=== PATIENT | male | born 1995 | race Hispanic/Latino ===

== ENCOUNTER 2020-02-20 14:24 | Emergency (ER) | payer BC, SELFPAY ==
[2020-02-20 14:40] VITALS: BP 134/76; PULSE 69; RESP 16; TEMP 36.9; O2SAT 99
--- NOTE | 2020-02-20 14:59 | ED.FEVER ---
HPI - Fever General Chief Complaint: Fever Stated Complaint: fever Time Seen by Provider: 02/20/20 15:00 Source: patient and RN notes reviewed Mode of arrival: ambulatory Limitations: no limitations History of Present Illness HPI Narrative: This is a 24 years old male presents to the office for an evaluation of fever when he woke up this morning. He took Tylenol which has helped. Denies any other associated symptoms include congestion, cough, shortness of breath, diarrhea or vomiting. He called off work and his boss told him to come here to get checked. He works at [employer]. Related Data Home Medications Medication Instructions Recorded Confirmed No Home Medications 02/20/20 02/20/20 Allergies Allergy/AdvReac Type Severity Reaction Status Date / Time No Known Allergies Allergy Verified 02/20/20 14:43 Review of Systems Review of Systems: Narrative: CONSTITUTIONAL: Reports fever of 104F this morning. ENT: Denies congestion, sore throat, otalgia. CARDIOVASCULAR: Denies chest pain RESPIRATORY: Denies dyspnea, wheezing, cough GASTROINTESTINAL: Denies abdominal pain, nausea, vomiting SKIN: Denies rash MUSCULOSKELETAL: Denies acute back pain NEUROLOGIC: Denies lightheaded PMFSH Social History Social History Gender identity (if verbalized by the patient): Male Comments At time of signature, I agree with nursing past medical, surgical, social and family history. There is no relevant family history pertinent to the presenting complaint. Exam Narrative: Exam Narrative: GENERAL: This is a well-nourished, well-developed patient, in no apparent distress. CARDIOVASCULAR: Regular rate and rhythm without murmurs, gallops, or rubs. RESPIRATORY: Clear to auscultation. Breath sounds equal bilaterally. No wheezes, rales, or rhonchi. GASTROINTESTINAL: Abdomen soft, non-tender, nondistended. Bowel sounds are active. No hepato-splenomegaly, or palpable masses. No guarding. SKIN: warm, intact with no suspicious lesions or rash, good texture and turgor. NEURO: awake, alert, and oriented to person, place and time. There were no obvious focal neurologic abnormalities. Steady gait [place] Coma Scale Eye Opening: Spontaneous 4 [place] Coma Scale Motor: Obeys Commands 6 [place] Coma Scale Verbal: Oriented 5 Course Vital Signs Vital signs: Vital Signs Temperature 98.4 F 02/20/20 14:40 Pulse Rate 69 02/20/20 14:40 Respiratory Rate 16 02/20/20 14:40 Blood Pressure 134/76 02/20/20 14:40 Pulse Oximetry 99 02/20/20 14:40 Temperature 98.4 F 02/20/20 14:40 Pulse Rate 69 02/20/20 14:40 Respiratory Rate 16 02/20/20 14:40 Blood Pressure 134/76 02/20/20 14:40 Pulse Oximetry 99 02/20/20 14:40 MDM - Fever MDM Narrative Medical decision making narrative: Discharge instructions reviewed with patient, as well as provided in writing per nursing staff. The instructions also include specific and strict return/GO TO THE ER as well as f/u information. All questions have been answered, and the patient deny any further questions with discharge and discharge plan. Differential Diagnosis Differential diagnosis: Likely fever of unknown origin, gastroenteritis, viral infection, influenza and other (COVID) Critical Care Time Critical Care Time Critical Care Time: No Discharge Plan Discharge Clinical Impression: Fever of unknown origin Patient Disposition: Home, Self-Care Condition: Stable Additional Instructions: Please follow with CDC guideline regarding COVID include but not limited to wearing mask, frequency hand washing and social distancing. Someone at the hospital will call you to schedule an appointment to do a Lupe testing, you can expect the results in 24 hours after testing. Please call us to get the result if we do not call you. Seek ER visit if you develop severe shortness of breath, uncontrolled sha
== END 2020-02-20 15:12 | disposition home or self-care (01) ==
PROVIDERS: Emergency Provider Nurse Practitioner
DX: R50.9 Fever, unspecified (principal); Z20.828 Contact with and (suspected) exposure to other viral communicable diseases
CPT/HCPCS: 99203; G0463

== ENCOUNTER 2020-02-21 08:00 | Outpatient (NON) | payer BC, SELFPAY ==
[2020-02-21 17:16] LABS: SARS-CoV-2 RNA PCR Negative
== END 2020-02-21 08:01 ==
PROVIDERS: Visit Provider Nurse Practitioner
DX: R50.9 Fever, unspecified (principal); Z20.828 Contact with and (suspected) exposure to other viral communicable diseases
CPT/HCPCS: 87635; C9803; U0003